=== PATIENT | female | born 1980 | race Caucasian/White ===

== ENCOUNTER 2018-10-19 06:40 | Inpatient (IN) | payer BC ==
[~2018-10-19] VITALS: Ht 162.6 cm; Wt 95.5 kg
[2018-10-19 07:17] LABS: BASOPHILS 0 % (0-2); EOSINOPHILS 0 % (0-7); HEMATOCRIT 39.8 % (36.0-48.0); HEMOGLOBIN 13.9 g/dL (12-16); IMMATURE GRANULOCYTES 0.3 % (0-5); MCH 29.8 pg (26.0-34.0); MCHC 34.9 g/dL (31.0-37.0); MCV 85.2 fL (80.0-100.0); MEAN PLATELET VOLUME 10.4 fL (7.4-10.4); MONOCYTES 1.1 % (2-11); NEUTROPHILS 93.6 % (40-80); RBC 4.67 10x6/uL (4.00-5.40); RDW 13.7 % (11.5-14.5); WBC 11.7 10x3/uL (4.8-10.8)
[2018-10-19 07:18] LABS: ALBUMIN 3.4 g/dL (3.4-5.0); ALKALINE PHOSPHATASE 81 U/L (46-116); ALT (SGPT) 19 U/L (10-68); BILIRUBIN - TOTAL 1.11 mg/dL (0.2-1.3); CALC OSMOLALITY 272 mosm/kg (275-300); CALCIUM 8.9 mg/dL (8.5-10.1); CARBON DIOXIDE 23.8 mmol/L (21.0-32.0); CHLORIDE - SERUM 101 mmol/L (98-107); CREATININE - SERUM 0.9 mg/dL (0.6-1.3); PLATELET COUNT 207 10x3/uL (130-400); POTASSIUM - SERUM 3.2 mmol/L (3.5-5.1); PROTEIN - SERUM 7.7 g/dL (6.4-8.2); SODIUM 136 mmol/L (136-145); UREA NITROGEN 9 mg/dL (7-18); eGFR NON AFRICAN AMERICAN 74 mL/min (90-120)
[2018-10-19 07:21] LABS: GLUCOSE 137 mg/dL (74-106)
[2018-10-19 07:22] LABS: AMYLASE - SERUM 26 U/L (25-115); LIPASE 66 U/L (73-393)
[2018-10-19 07:23] LABS: TROPONIN-I < 0.017 ng/mL (0.000-0.060)
[2018-10-19 07:35] LABS: APPEARANCE CLOUDY (CLEAR); BILIRUBIN NEGATIVE (NEGATIVE); COLOR YELLOW (YELLOW); GLUCOSE NEGATIVE (NEGATIVE); KETONE NEGATIVE (NEGATIVE); NITRITE POSITIVE (NEGATIVE); PROTEIN TRACE mg/dL (NEGATIVE); UROBILINOGEN NORMAL (NORMAL)
[2018-10-19 07:36] LABS: BACTERIA MANY /hpf (NONE SEEN); MUCUS <1+ /lpf (NONE SEEN); RED CELLS - URINE 0-5 /hpf (0-5); WHITE CELLS - URINE 25-50 /hpf (0-5)
[2018-10-19 07:39] LABS: HCG SERUM NEGATIVE (NEGATIVE)
--- NOTE | 2018-10-19 08:17 | NUR ---
bolus of ns going in, iv antibiotics up . pts temp is coming down 100.5.
--- NOTE | 2018-10-19 08:29 | NUR ---
pt to ct via stretcher.
[2018-10-19 08:47] VITALS: BP 101/57
--- NOTE | 2018-10-19 10:00 | NUR ---
PT ARRIVED VIA WHEELCHAIR WITH ER STAFF. VSS AND WNL. PT ABLE TO ANSWER ALL QUESTIONS. DENIES ANY NEEDS AT THIS TIME, WILL CONT TO FOLLOW POC
[2018-10-19 10:02] VITALS: BP 107/69; BMI 36.1
--- NOTE | 2018-10-19 12:00 | NUR ---
PT RESTING IN BED, DENIES ANY NEEDS AT THIS TIME. WILL CONT TO FOLLOW POC
[2018-10-19 12:10] VITALS: BP 104/62
[2018-10-19 13:44] VITALS: Ht 162.6 cm; Wt 95.5 kg
[2018-10-19 17:05] VITALS: BP 114/77
--- NOTE | 2018-10-19 18:10 | NUR ---
PT RESTING IN BED, DENIES ANY NEEDS AT THIS TIME, WILL CONT TO FOLLOW POC
[2018-10-20 07:41] LABS: BASOPHILS 0.1 % (0-2); EOSINOPHILS 0.3 % (0-7); HEMATOCRIT 33.8 % (36.0-48.0); HEMOGLOBIN 11.7 g/dL (12-16); IMMATURE GRANULOCYTES 0.3 % (0-5); LYMPHOCYTES 11.7 % (15-50); MCH 29.5 pg (26.0-34.0); MCHC 34.6 g/dL (31.0-37.0); MCV 85.4 fL (80.0-100.0); MONOCYTES 8.5 % (2-11); NEUTROPHILS 79.1 % (40-80); PLATELET COUNT 167 10x3/uL (130-400); RBC 3.96 10x6/uL (4.00-5.40); RDW 13.7 % (11.5-14.5)
[2018-10-20 07:43] LABS: WBC 7.5 10x3/uL (4.8-10.8)
[2018-10-20 07:44] VITALS: BP 118/75
[2018-10-20 07:55] LABS: CALC OSMOLALITY 278 mosm/kg (275-300); CALCIUM 8.2 mg/dL (8.5-10.1); CARBON DIOXIDE 24.6 mmol/L (21.0-32.0); CHLORIDE - SERUM 107 mmol/L (98-107); CREATININE - SERUM 0.7 mg/dL (0.6-1.3); GLUCOSE 109 mg/dL (74-106); POTASSIUM - SERUM 3.3 mmol/L (3.5-5.1); SODIUM 140 mmol/L (136-145); UREA NITROGEN 9 mg/dL (7-18); eGFR NON AFRICAN AMERICAN > 90 mL/min (90-120)
--- NOTE | 2018-10-20 08:18 | NUR ---
IVBP ROCEPHIN HUNG AT THIS TIME. TO INFUSE TO RT AC. PT RESTING COMFORTABLY IN BED, EASILY AROUSES TO VOICE. RESP EVEN AND NONLABORED ON RA. PT DENIES ANY NEEDS AT THIS TIME. FAMILY AT BEDSIDE,NAD NOTED, WILL CONTINUE PLAN OF CARE.
[2018-10-20 12:18] VITALS: BP 127/77
[2018-10-20 15:56] VITALS: BP 143/89
--- NOTE | 2018-10-20 18:31 | NUR ---
PT RESTING COMFORTABLY IN BED, DENIES ANY NEEDS AT THIS TIME. CALL LIGHT IN REACH, NAD NOTED.
--- NOTE | 2018-10-20 19:43 | NUR ---
PATIENT RESTING IN BED WITH NO S/S OF DISTRESS AND DENIES NEEDS AT THIS TIME. VSS. BED IN LOWEST POSITION AND CALL LIGHT WITHIN REACH. ENCOURAGED THE PATIENT TO CALL IF SHE HAS NEEDS. WILL CONTINUE TO MONITOR.
[2018-10-20 19:57] VITALS: BP 130/80
--- NOTE | 2018-10-20 22:23 | NUR ---
ORDERED LATE AFTERNOON ROUTINE. WILL BE DONE IN AM. SHEA,ALMAMS
[2018-10-21 00:15] VITALS: BP 109/65
[2018-10-21 04:25] VITALS: BP 129/77
--- NOTE | 2018-10-21 07:25 | NUR ---
MORNING ROUNDS COMPLETE. VSS, NO SIGNS OF DISTRESS. NO C/O PAIN AT THIS TIME. PT LAYING IN BED. CL IN REACH, BED IN LOWEST POSITION. CONT WITH POC.
[2018-10-21 08:05] VITALS: BP 150/75
[2018-10-21 12:36] VITALS: BP 137/85
[2018-10-21] MEDS ORDERED: SULFAMETHOXAZOL1 TA2 PO (13:31)
--- NOTE | 2018-10-21 14:17 | NUR ---
D/C PT IV, WITH CATH TIP INTACT. D/C PAPERWORK REVIEWED, ALL QUESTIONS ANWERED. PT HAS NO FURTHER CONCERNS AT THIS TIME. PT IS SITTING UP IN BED, WAITING FOR SPOUSE TO ARRIVE TO TAKE HER HOME.
--- NOTE | 2018-10-21 17:37 | NUR ---
PT WHEELED TO FRONT DOOR IN WHEEL CHAIR.
== END 2018-10-21 17:38 | disposition home or self-care (01) | DRG 690 ==
LOC: D.ER 06:40 → D.M3 09:39
PROVIDERS: Family Medicine; ADMIT Family Medicine; ATTEND Family Medicine
DX: N12 Tubulo-interstitial nephritis, not specified as acute or chronic (principal); F32.9 Major depressive disorder, single episode, unspecified; B96.20 Unspecified Escherichia coli [E. coli] as the cause of diseases classified elsewhere; Z72.0 Tobacco use